=== PATIENT | male | born 1980 | race Hispanic/Latino ===

== ENCOUNTER → 2019-09-11 | Day surgery (SDC) | payer SELFPAY ==
[~2019-09-11] MED LIST: NEXIUM20 MG PO; PROPOFOL IV EMULSION 10 MG/ML 20 ML VIAL ONE
[2019-09-11 10:10] VITALS: BP 97/65
--- NOTE | 2019-09-11 10:36 | Operative Report ---
DATE OF PROCEDURE: 09/11/2019 SURGEON: Perry Charlton MD PROCEDURES: EGD with esophageal dilatation and biopsies. INDICATIONS FOR PROCEDURE: Dysphagia, postprandial bloating, nausea, and vomiting. MEDICATIONS: The patient was done under MAC, please see anesthesiologist's note. PROCEDURE IN DETAIL: With the patient in the left lateral decubitus position, a flexible fiberoptic Olympus gastroscope was introduced into the esophagus under direct visualization without any difficulty. There was some patchy erythema noted in distal esophagus. There was a mild stricture noted at the GE junction that was dilated to size 52-Armen[place] Merritt. The scope was then advanced with ease into the stomach. Mucosa overlying the antrum and the body revealed some patchy erythema and [id number] edema, and biopsies were obtained and sent to stain for H. pylori. The pylorus was of normal contour and shape, it was intubated with ease and the scope was advanced all the way to the second portion of the duodenum. Biopsies were obtained from the proximal second portion and the duodenal bulb to rule out sprue. The scope was then withdrawn back into the stomach and retroflexed, mucosa overlying the fundus and the cardia appeared to be within normal limits. The scope was then straightened out, it was subsequently withdrawn, and the patient tolerated the procedure well. IMPRESSION: 1. Distal esophagitis, mild. 2. Esophageal stricture, GE junction, dilated to size 52-Armenian Merritt. 3. Gastritis, biopsied, biopsies sent to stain for Helicobacter pylori. 4. Rule out sprue. PLAN: Follow up histology. Initiate Protonix 40 mg one p.o. before meals b.i.d. Perry Charlton MD [facility] [place]AH /[id number]
== END | disposition home or self-care (01) ==
LOC: OR 07:53
PROVIDERS: ATTEND Internal Medicine Gastroenterology
DX: K22.2 Esophageal obstruction (principal); K29.70 Gastritis, unspecified, without bleeding; K20.9 Esophagitis, unspecified; K59.00 Constipation, unspecified; K21.9 Gastro-esophageal reflux disease without esophagitis; R42 Dizziness and giddiness; R06.83 Snoring; F41.9 Anxiety disorder, unspecified; F17.200 Nicotine dependence, unspecified, uncomplicated
CPT/HCPCS: 43239; 43450; J2704

== ENCOUNTER → 2025-03-19 | Day surgery (SDC) | payer BC ==
[~2025-03-19] MED LIST changes: +FENTANYL CITRATE/PF 100MCG/2 ML INJ ONE; +LIDOCAINE HCL 2% LOCAL INJ 5 ML SDV VIAL INJ ONE; +METOCLOPRAMIDE HCL 10 MG/2ML VIAL ONE; +MIDAZOLAM HCL 2 MG/2 ML VIAL ONE; +PANTOPRAZOLE SO40 MG PO; +PROPOFOL IV EMULSION 0 ML IV ONE; +SUCRALFATE1 GM PO
[2025-03-19] MEDS: LACTATED RINGER'S 1,000 ML ONE (11:46)
[2025-03-19 13:18] VITALS: TEMP 98.5
[2025-03-19 13:40] VITALS: BP 109/71; PULSE 58; RESP 18; O2SAT 99
== END | disposition home or self-care (01) ==
LOC: ENDO 10:56
PROVIDERS: ATTEND Internal Medicine Gastroenterology
DX: K22.2 Esophageal obstruction (principal); K21.00 Gastro-esophageal reflux disease with esophagitis, without bleeding; K29.70 Gastritis, unspecified, without bleeding; Z01.810 Encounter for preprocedural cardiovascular examination
CPT/HCPCS: 43239; 43450; 93005; J2003; J2250; J2470; J2765